=== PATIENT | female | born 1955 | race Caucasian/White ===

== ENCOUNTER → 2017-04-19 | Outpatient (CLI) | payer OTHER, MEDICARE ==
[2016-02-05 11:06] VITALS: BMI 26.6
[~2017-04-19] MED LIST: ACY15T TOP; ADV100/50 INH; ADV230RPT INH; ADV250/50 INH; ALPR-1 PO; AMLO-101 PO; ARM250PT PO; ARMO150T4 PO; ASC500 PO; ASCO-182 PO; ASCO500C9 PO; AZE137NAPT NS; AZEL23SP NS; AZIT-1 PO; AZIT-18 PO; AZIT500T45 PO; BIOT250012 PO; BUPI5VIA IJ; BUPR-126 PO; BUPR1PAT8 TD; CALC-1046; CALC-476 PO; CALC500T6 PO; CARV6.2574 PO; CELE-1 PO; CEP500 PO; CEPH-13 PO; CHOL100062 PO; CHOL500045 PO; CIP500 PO; CIPR-326 PO; CLI150 PO; CLIN300C99 PO; CLOB15CR22 TP; CYAN1TAB68 PO; CYAN25007 SL; DICL150D3 TP; DICY-42 PO; DOCU-416 PO; DOXY-179 PO; DOXY50SY2 PO; DULERAPT IH; EPIN0.3P15 IM; ESOM20CA31 PO; ESOM40CA42 PO; ESZ3PT PO; EZE10 PO; EZET10TA41 PO; FAMO20TA28 PO; FERR325C2 PO; FEX60 PO; FEXO-67 PO; FEXO180T74 PO; FLU150 PO; FLUC100T35 PO; FLUO-202 PO; FLUO40CA76 PO; FLUT16SP20 NS; FLUT1DIS27; FLUT1DIS29 IH; FOLI0.4T56 PO; FOLI0.8T29 PO; FOLI20CA2 PO; FOLIC ACID PO; FUR20 PO; FURO20TA19 PO; GABA-1 PO; HYDR-4228 PO; HYDR2TAB41 PO; HYDR50TA35 PO; IRON18TA2 PO; KET10 PO; LACT1CAP6 PO; LEVA0.6320 IH; LEVA1.2524 IH; LEVA15HF IH; LIN600 PO; LOPE2CAP15 PO; LOPE2CAP88 PO; LORA-1455 PO; MET800 PO; METR-1 PO; METR-119 PO; METR45GE7 TP; METROGEL; MINO100T8 PO; MODA100T32 PO; MON10 PO; MONT10TA PO; MONT10TA22 PO; MULT-1 PO; MULT1TAB64 PO; MUPI15CR2 TP; NABU-95 PO; NAPR220C12 PO; NEPOD OP; NYST100040 PO; ONDA4TAB PO; OXYC-375 PO; OXYC-865 PO; OXYC5TAB38 PO; OXYCODONE IR PO; OXYGEN INH; OXYGENHOME INH; OXYIR PO; PER PO; PIME30CR TOP; PIMT TP; PIR14R INH; PRA20 PO; PRAV20TA65 PO; PRE50 PO; PRED20TA6 PO; PREG100C45 PO; PYRI100T57 PO; QUIN324 PO; QUIN325 PO; RAL60 PO; RAM8 PO; RAME8TAB24 PO; SPRIX; SUMA100T33 PO; TAMO20TA24 PO; TERB250T64 PO; TERB250T74 PO; TIZ4 PO; TIZA4CAP6 PO; TOPI-120 PO; TOPI25TA PO; TRA50 PO; TRI05T TP; UBID100C48 PO; VITA-197 PO; VITA-200 PO; VITAMIN B6 PO; VITAMINS; ZINC25LO PO; ZINC30CA2 PO; ZINC50TA71 PO; [UNRECOGNIZED DRUG - CODE] IJ; [UNRECOGNIZED DRUG - CODE] IJ; [UNRECOGNIZED DRUG - CODE] PO; [UNRECOGNIZED DRUG - CODE] PO; [UNRECOGNIZED DRUG - OTHER]; [UNRECOGNIZED DRUG - REMARK]
--- NOTE | 2017-04-19 15:52 | RADIOLOGY IMAGING REPORT ---
FACILITY: PATIENT NAME: UBALDO PICKARD : [id number] MR: [id number] V: [id number] EXAM DATE: ORDERING PHYSICIAN: JACKLYN BROWN TECHNOLOGIST: Kay Junior PROCEDURE:BILATERAL DIGITAL SCREENING MAMMOGRAM WITH CAD ASSISTED INTERPRETATION & 3D TOMOSYNTHESIS COMPARISON:Prior mammograms 08/12/15, 07/30/14, 04/09/13, 06/27/12 INDICATIONS:SCREENING FINDINGS: A small amount of fibroglandular tissue is seen throughout the breasts. The parenchymal pattern has remained stable allowing for difference in mammographic technique & patient positioning. There is no evidence of malignant appearing mass, malignant appearing calcifications or other secondary sign of malignancy in either breast. DIAGNOSTIC CATEGORY 1--NEGATIVE. RECOMMENDATIONS: ROUTINE MAMMOGRAM AND CLINICAL EVALUATION. IMPRESSION: BIRADS 1: Negative No significant abnormality is seen Dictated by: Danita Suthelrand M.D. on 04/19/2017 at 11:51 Transcribed by: GURPREET on 04/19/2017 at 13:02 Approved by: Danita Sutherland M.D. on 04/19/2017 at 15:51 [facility]
== END ==
LOC: MAMO 00:31
PROVIDERS: ATTEND Family Medicine
DX: Z12.31 Encounter for screening mammogram for malignant neoplasm of breast (principal)
CPT/HCPCS: 77063; 77067

== ENCOUNTER 2017-06-19 18:56 | Emergency (ER) | payer OTHER, MEDICARE ==
[2016-02-05 11:06] VITALS: BMI 26.6
[~2017-06-19 18:56] MED LIST changes: -OXYC-375 PO; +OXYC1TAB78 PO
--- NOTE | 2017-06-19 19:47 | ER Report ---
History and Physical Time Seen By MD: 19:20 Hx. of Stated Complaint: Pt cut right thumb while cutting cabbage. HPI/ROS Patient is a 62-year-old left-hand dominant female who cut the tip of her right thumb with a sharp knife while cutting cabbage. Injury occurred just prior to arrival. She did have significant bleeding at the time. She is controlled bleeding with direct pressure. She notes no other injury. Review of systems: Gen.: No recent fevers chills or illnesses Cardiac: Negative Respiratory: Negative Musculoskeletal: As per history of present illness otherwise negative Allergies: Coded Allergies: Sulfa (Sulfonamide Antibiotics) (Verified Allergy, Severe, weeping blisters, 03/16/16) diazepam (Verified Allergy, Severe, grand mal seizures, 03/16/16) haloperidol (Verified Allergy, Severe, grand mal seizures, 03/16/16) iodine (Verified Allergy, Severe, VOMITING,RASH, 03/16/16) soap (Verified Allergy, Severe, VOMITING,RASH, 03/16/16) amoxicillin (Verified Allergy, Intermediate, rash, diarrhea, 03/16/16) cephalexin (Verified Allergy, Intermediate, UNKNOWN, 03/16/16) yeast infection clavulanic acid (Verified Allergy, Intermediate, rash, diarrhea, 03/16/16) Shellfish (Verified Allergy, Mild, RASH, 03/16/16) adhesive (Verified Allergy, Mild, RASH, 03/16/16) chlorhexidine (Verified Allergy, Mild, RASH, 03/16/16) rash if solution is to concentrated famotidine (Verified Allergy, Mild, DIARRHEA, 07/19/16) lactose (Verified Allergy, Mild, n/v and gas , 03/16/16) latex (Verified Allergy, Mild, RASH, 03/16/16) bacitracin (Verified Allergy, Unknown, 03/16/16) midazolam (Unverified Allergy, Unknown, UNKNOWN, 03/16/16) nickel (Verified Allergy, Unknown, 03/16/16) red dye (Verified Allergy, Unknown, 03/16/16) banana (Verified Adverse Reaction, Unknown, 06/27/16) Migraine peanut (Verified Adverse Reaction, Unknown, 06/27/16) Migraine Uncoded Allergies: iv contrast (Allergy, Severe, RASH, 10/31/06) absorbable sutures (Allergy, Mild, body rejects suture, 06/27/16) Pt allergic to vicryl & polyglycolic (not monocryl) plastic angiocatheters (Allergy, Mild, intense itching at ivsite, 10/31/06) PALLADIUM (Allergy, Unknown, 08/12/13) polyglycolic sutures (Allergy, Unknown, 06/19/17) aure (Allergy, Unknown, 06/19/17) vycril sutures (Allergy, Unknown, 06/19/17) Cavilon (Adverse Reaction, Unknown, RASH, 06/27/16) Barrier spray MSG (Adverse Reaction, Unknown, 06/27/16) Migraine Home Meds Active Scripts Esomeprazole Magnesium (NEXIUM) 40 Mg Capsule.dr, 1 TAB PO BID for 90 Days, # 180 CAP Prov:TOR CANDELARIO JR, MD 12/13/16 Fluconazole (FLUCONAZOLE) 150 Mg Tab, 1 TAB PO ONCE, #1 TAB 0 Refills Take if needed for vaginal yeast infection. Prov:JUDITH BENJAMIN DNP, IMPLEMENTATION CONSULTANT-BC 11/28/16 Cephalexin (KEFLEX) 500 Mg Capsule, 1 TAB PO Q6H, #28 CAP 0 Refills Prov:JUDITH BENJAMIN DNP, IMPLEMENTATION CONSULTANT-BC 11/28/16 Reported Medications Hydroxyzine Hcl (HYDROXYZINE HCL) 50 Mg Tablet, 1-2 TAB PO QHS Y for SLEEP 11/27/16 [BiPAP] No Conflict Check 11/27/16 Vitamin E Acetate (VITAMIN E) 400 Unit Capsule, 400 UNIT PO QHS, CAPSULE 06/27/16 Multivitamin (MULTI VITAMIN DAILY) 1 Each Tablet, 1 EACH PO QDAY, TAB 06/27/16 Lactobacillus Combination No.4 (PROBIOTIC) 1 Each Capsule, 1 EACH PO QDAY, CAPSULE 06/27/16 Tizanidine Hcl (ZANAFLEX) 4 Mg Capsule, 4 MG PO Q6H Y for MUSCLE SPASMS, CAPSULE 06/27/16 Bupropion Hcl (WELLBUTRIN SR) 150 Mg Tablet.er, 150 MG PO BID, TAB 06/27/16 Sumatriptan Succinate (SUMATRIPTAN SUCCINATE) 100 Mg Tablet, 100 MG PO ONCE Y for MIGRAINE 06/27/16 Folic Acid (FOLIC ACID) 0.8 Mg Tablet, 0.8 MG PO QHS 06/27/16 Ascorbic Acid (VITAMIN C) 500 Mg Capsule.er, 500 MG PO BID 02/04/16 Pyridoxine Hcl (VITAMIN B-6) 100 Mg Tablet, 100 MG PO QHS 02/04/16 Calcium Carbonate (CALCIUM) 500 Mg Tablet, 600 MG PO QDAY 02/04/16 Biotin (BIOTIN) 2,500 Mcg Capsule, 5000 MCG PO QHS, CAPSULE 02/04/16 Ezetimibe (ZETIA) 10 Mg Tablet, 10 MG PO QHS, TAB 02/04/16 Levalbuterol Hcl (XOPENEX) 0.63 Mg/3 Ml Vial.neb, 0.63 MG IH Q6H Y for WHEEZING , BOTTLE 02/04/16 Levalbuterol Tartrate (XOPENEX HFA) 15 Gm Hfa.aer.ad, 1-2 PUFF IH QID Y for DYSPNEA 02/04/16 Tamoxifen Citrate (TAMOXIFEN CITRATE) 20 Mg Tablet, 20 MG PO QDAY 02/04/16 Topiramate (TOPAMAX) 50 Mg Tablet, 50 MG PO BID 02/04/16 Montelukast Sodium (SINGULAIR) 10 Mg Tablet, 1 TAB PO QDAY, TAB 02/04/16 Fluoxetine Hcl (PROZAC) 20 Mg Capsule, 60 MG PO QDAY, CAPSULE 02/04/16 Pravastatin Sodium (PRAVACHOL) 20 Mg Tablet, 20 MG PO QHS, TAB 02/04/16 Oxygen (OXYGEN) Inha, 1 L INH, L 02/04/16 Amlodipine Besylate (NORVASC) 5 Mg Tablet, 1 TAB PO QDAY, TAB 02/04/16 Esomeprazole Magnesium (NEXIUM) 20 Mg Capsule.dr, 1 CAP PO QHS, CAP 02/04/16 Esomeprazole Magnesium (NEXIUM) 40 Mg Capsule.dr, 1 CAP PO QAM, CAP 02/04/16 Azelastine/Fluticasone (DYMISTA NASAL SPRAY) 23 Gm [place].pump, 1 SPR NS BID Y for CONGESTION 02/04/16 Carvedilol (COREG) 6.25 Mg Tablet, 6.25 MG PO BID, #10 TAB 02/04/16 Fexofenadine Hcl (ARVIND ALLERGY) 180 Mg Tablet, 180 MG PO QHS 02/04/16 Fluticasone/Salmeterol (ADVAIR HFA 230-21 MCG INHALER) 1 Inh Inh, 2 INH INH BID , INH 02/04/16 Discontinued Reported Medications Cholecalciferol (Vitamin D3) (VITAMIN D) 5,000 Unit Tablet, 5000 UNIT PO QHS 02/04/16 Past Medical/Surgical History Extensive medical history was reviewed as is documented on the chart Reviewed Nurses Notes: Yes Hx Smoking: Yes (SMOKED 1 TO 2 PPD AGE 13 TO 44.) Smoking Status: Former Smoker Exposure to Second Hand Smoke?: No Hx Substance Use Disorder: Yes Hx Alcohol Use: No Constitutional Vital Sign - Last 24 Hours 06/19/17 06/19/17 06/19/17 06/19/17 19:14 19:15 19:26 19:30 Temp 98.5 Pulse 75 65 Resp 16 B/P (MAP) 142/77 (98) 142/77 149/70 (96) Pulse Ox 91 92 O2 Delivery Room Air 06/19/17 06/19/17 06/19/17 19:41 19:56 20:00 Pulse 63 64 B/P (MAP) 138/74 (95) Pulse Ox 93 91 Physical Exam General appearance: alert no distress Skin: Warm pink and dry Neurologic: Patient alert oriented appropriate without focal findings Right thumb: There is a partial evulsion laceration of the distal thumb ulnar aspect at the corner of the nail bed and fingertip. This is partial thickness. There is no involvement of the nailbed itself. No involvement of the nail. She has full range of motion of the thumb. Neurovascular is intact. No other injuries on the hand are noted. There is currently good hemostasis. Normal capillary refill. DIFFERENTIAL DIAGNOSIS: After history and physical exam differential diagnosis was considered for hand/finger injury including contusion, abrasion, laceration , nailbed involvement, and deep structure injuries. Medical Decision Making ED Course/Re-evaluation ED Course In the department, after evaluation of the thumb I discussed options for repair. These include conservative treatment with cleaning, Steri-Stripped, and compression bandaging versus consideration of suturing of the flap. Patient would prefer to have the suturing done. Procedure Laceration repair: Right thumb A digital block was placed using 2% lidocaine plain at the base of the thumb on the ulnar aspect. After appropriate anesthesia obtained wound was cleaned with sterile water. It was explored. No deep structures are involved. Wound was sutured closed using 5-0 Ethilon 2 simple interrupted sutures. Patient tolerated procedure well. Post procedure, wound was dressed with a compression dressing. Decision to Disposition Date: June 19, 2017 Decision to Disposition Time: 20:10 Depart Departure Latest Vital Signs Vital Signs Date Time Temp Pulse Resp B/P (MAP) Pulse Ox O2 Delivery O2 Flow Rate FiO2 06/19/17 20:00 138/74 (95) 06/19/17 19:56 64 91 06/19/17 19:15 98.5 16 Room Air Impression: Primary Impression: Laceration of thumb Condition: Improved Disposition: HOME OR SELF-CARE Referrals: JACKLYN BROWN MD (PCP) Patient Instructions: Finger Laceration (ED) Additional Instructions: return for suture removal in 10-14 days Problem Qualifiers Primary Impression: Laceration of thumb Encounter type: initial encounter Damage to nail status: without damage Foreign body presence: with foreign body Laterality: right Qualified Codes: S61.021A - Laceration with foreign body of right thumb without damage to nail , initial encounter SAUL KENNEDY MD June 19, 2017 19:47
[2017-06-19 20:00] VITALS: BP 138/74
== END 2017-06-19 20:10 | disposition home or self-care (01) ==
LOC: ER 19:51
DX: S61.021A Laceration with foreign body of right thumb without damage to nail, initial encounter (principal)
CPT/HCPCS: 99284

== ENCOUNTER → 2017-08-24 | Outpatient (CLI) | payer OTHER, MEDICARE ==
[2016-02-05 11:06] VITALS: BMI 26.6
== END ==
LOC: LAB 11:21
PROVIDERS: ATTEND Urology
DX: N39.0 Urinary tract infection, site not specified (principal); R82.79 Other abnormal findings on microbiological examination of urine
CPT/HCPCS: 81001; 87088

== ENCOUNTER → 2017-09-14 | Outpatient (REF) | payer OTHER, MEDICARE ==
[2016-02-05 11:06] VITALS: BMI 26.6
== END ==
LOC: ZZSENDIN 13:57
PROVIDERS: ATTEND Family Medicine
DX: R31.9 Hematuria, unspecified (principal)
CPT/HCPCS: 81001

== ENCOUNTER 2017-09-28 12:22 | Emergency (ER) | payer OTHER, MEDICARE ==
[2016-02-05 11:06] VITALS: Wt 87.5 kg
--- NOTE | 2017-09-28 12:32 | ER Report ---
History and Physical Time Seen By MD: 12:32 Hx. of Stated Complaint: PATIENT REPORTS THAT SHE HAS A OPEN SPOT ON HER LOWER BACK THAT SHE BELIEVES MIGHT BE A SUTURE THAT WAS PLACED IN 2017. HPI/ROS CHIEF COMPLAINT: Wound on back HISTORY OF PRESENT ILLNESS: 62-year-old female patient presents to emergency room with complaint of a wound on her back. Patient states that she noticed this yesterday. She states that she had surgery back in 2008 in that area. She states that they did use some subcuticular sutures. She states she does have a history of rejecting those. She believes that she has an area on her back which is a rejection of one of those sutures. She states that she noticed that she was having some itching yesterday. She states she had her take some pictures. She states that it did show an opening. They did cover that with a bandage. She states that today when she was in the shower that she bent over to clean her toes and water got into it causing significant amounts of a burning sensation. She denies any trauma to the area, she denies any recent injury to the skin. Patient states she has not taken any medication for this. Allergies: Coded Allergies: Sulfa (Sulfonamide Antibiotics) (Verified Allergy, Severe, weeping blisters, 03/16/16) diazepam (Verified Allergy, Severe, grand mal seizures, 03/16/16) haloperidol (Verified Allergy, Severe, grand mal seizures, 03/16/16) iodine (Verified Allergy, Severe, VOMITING,RASH, 03/16/16) soap (Verified Allergy, Severe, VOMITING,RASH, 03/16/16) amoxicillin (Verified Allergy, Intermediate, rash, diarrhea, 03/16/16) cephalexin (Verified Allergy, Intermediate, UNKNOWN, 03/16/16) yeast infection clavulanic acid (Verified Allergy, Intermediate, rash, diarrhea, 03/16/16) Shellfish (Verified Allergy, Mild, RASH, 03/16/16) adhesive (Verified Allergy, Mild, RASH, 03/16/16) chlorhexidine (Verified Allergy, Mild, RASH, 03/16/16) rash if solution is to concentrated famotidine (Verified Allergy, Mild, DIARRHEA, 07/19/16) lactose (Verified Allergy, Mild, n/v and gas , 03/16/16) latex (Verified Allergy, Mild, RASH, 03/16/16) bacitracin (Verified Allergy, Unknown, 03/16/16) midazolam (Unverified Allergy, Unknown, UNKNOWN, 03/16/16) nickel (Verified Allergy, Unknown, 03/16/16) red dye (Verified Allergy, Unknown, 03/16/16) banana (Verified Adverse Reaction, Unknown, 06/27/16) Migraine peanut (Verified Adverse Reaction, Unknown, 06/27/16) Migraine Uncoded Allergies: iv contrast (Allergy, Severe, RASH, 10/31/06) absorbable sutures (Allergy, Mild, body rejects suture, 06/27/16) Pt allergic to vicryl & polyglycolic (not monocryl) plastic angiocatheters (Allergy, Mild, intense itching at ivsite, 10/31/06) PALLADIUM (Allergy, Unknown, 08/12/13) polyglycolic sutures (Allergy, Unknown, 06/19/17) aure (Allergy, Unknown, 06/19/17) vycril sutures (Allergy, Unknown, 06/19/17) Cavilon (Adverse Reaction, Unknown, RASH, 06/27/16) Barrier spray MSG (Adverse Reaction, Unknown, 06/27/16) Migraine Home Meds Active Scripts Doxycycline Hyclate (DOXYCYCLINE HYCLATE) 100 Mg Tablet, 100 MG PO BID, #19 TAB Prov:WIL OWENS 09/28/17 Esomeprazole Magnesium (NEXIUM) 40 Mg Capsule.dr, 1 TAB PO BID for 90 Days, # 180 CAP Prov:TOR CANDELARIO JR, MD 12/13/16 Fluconazole (FLUCONAZOLE) 150 Mg Tab, 1 TAB PO ONCE, #1 TAB 0 Refills Take if needed for vaginal yeast infection. Prov:JUDITH BENJAMIN DNP, FNP-BC 11/28/16 Cephalexin (KEFLEX) 500 Mg Capsule, 1 TAB PO Q6H, #28 CAP 0 Refills Prov:JUDITH BENJAMIN DNP, FNP-JOHN 11/28/16 Reported Medications Hydroxyzine Hcl (HYDROXYZINE HCL) 50 Mg Tablet, 1-2 TAB PO QHS Y for SLEEP 11/27/16 [BiPAP] No Conflict Check 11/27/16 Vitamin E Acetate (VITAMIN E) 400 Unit Capsule, 400 UNIT PO QHS, CAPSULE 06/27/16 Multivitamin (MULTI VITAMIN DAILY) 1 Each Tablet, 1 EACH PO QDAY, TAB 06/27/16 Lactobacillus Combination No.4 (PROBIOTIC) 1 Each Capsule, 1 EACH PO QDAY, CAPSULE 06/27/16 Tizanidine Hcl (ZANAFLEX) 4 Mg Capsule, 4 MG PO Q6H Y for MUSCLE SPASMS, CAPSULE 06/27/16 Bupropion Hcl (WELLBUTRIN SR) 150 Mg Tablet.er, 150 MG PO BID, TAB 06/27/16 Sumatriptan Succinate (SUMATRIPTAN SUCCINATE) 100 Mg Tablet, 100 MG PO ONCE Y for MIGRAINE 06/27/16 Folic Acid (FOLIC ACID) 0.8 Mg Tablet, 0.8 MG PO QHS 06/27/16 Ascorbic Acid (VITAMIN C) 500 Mg Capsule.er, 500 MG PO BID 02/04/16 Pyridoxine Hcl (VITAMIN B-6) 100 Mg Tablet, 100 MG PO QHS 02/04/16 Calcium Carbonate (CALCIUM) 500 Mg Tablet, 600 MG PO QDAY 02/04/16 Biotin (BIOTIN) 2,500 Mcg Capsule, 5000 MCG PO QHS, CAPSULE 02/04/16 Ezetimibe (ZETIA) 10 Mg Tablet, 10 MG PO QHS, TAB 02/04/16 Levalbuterol Hcl (XOPENEX) 0.63 Mg/3 Ml Vial.neb, 0.63 MG IH Q6H Y for WHEEZING , BOTTLE 02/04/16 Levalbuterol Tartrate (XOPENEX HFA) 15 Gm Hfa.aer.ad, 1-2 PUFF IH QID Y for DYSPNEA 02/04/16 Tamoxifen Citrate (TAMOXIFEN CITRATE) 20 Mg Tablet, 20 MG PO QDAY 02/04/16 Topiramate (TOPAMAX) 50 Mg Tablet, 50 MG PO BID 02/04/16 Montelukast Sodium (SINGULAIR) 10 Mg Tablet, 1 TAB PO QDAY, TAB 02/04/16 Fluoxetine Hcl (PROZAC) 20 Mg Capsule, 60 MG PO QDAY, CAPSULE 02/04/16 Pravastatin Sodium (PRAVACHOL) 20 Mg Tablet, 20 MG PO QHS, TAB 02/04/16 Oxygen (OXYGEN) Inha, 1 L INH, L 02/04/16 Amlodipine Besylate (NORVASC) 5 Mg Tablet, 1 TAB PO QDAY, TAB 02/04/16 Esomeprazole Magnesium (NEXIUM) 20 Mg Capsule.dr, 1 CAP PO QHS, CAP 02/04/16 Esomeprazole Magnesium (NEXIUM) 40 Mg Capsule.dr, 1 CAP PO QAM, CAP 02/04/16 Azelastine/Fluticasone (DYMISTA NASAL SPRAY) 23 Gm [place].pump, 1 SPR NS BID Y for CONGESTION 02/04/16 Carvedilol (COREG) 6.25 Mg Tablet, 6.25 MG PO BID, #10 TAB 02/04/16 Fexofenadine Hcl (ARVIND ALLERGY) 180 Mg Tablet, 180 MG PO QHS 02/04/16 Fluticasone/Salmeterol (ADVAIR HFA 230-21 MCG INHALER) 1 Inh Inh, 2 INH INH BID , INH 02/04/16 Past Medical/Surgical History Patient has a past medical history of seizure, migraines, hypertension, hyperlipidemia, asthma, pneumonia, reflux, kidney stones, arthritis, spinal fracture, back pain, scleroderma, cellulitis, substance abuse, depression, anxiety, squamous cell carcinoma. Patient has a surgical history of an exploratory laparotomy, appendectomy, cystoscopy, multiple back surgeries, foot surgery, wrist surgery, ankle surgery , rotator cuff surgery, tonsillectomy, cataract surgery, squamous cell removed, spinal cord stimulator placed, excision of a pellet seen mass which was benign. Reviewed Nurses Notes: Yes Hx Smoking: Yes (SMOKED 1 TO 2 PPD AGE 13 TO 44.) Smoking Status: Former Smoker Exposure to Second Hand Smoke?: No Hx Substance Use Disorder: Yes Hx Alcohol Use: No Constitutional Vital Sign - Last 24 Hours 09/28/17 09/28/17 09/28/17 09/28/17 12:22 12:24 12:25 12:30 Temp 98.6 Pulse ??? 61 Resp 20 B/P (MAP) 144/86 144/86 (105) 124/67 (86) Pulse Ox 93 O2 Delivery Nasal Cannula 09/28/17 09/28/17 09/28/17 12:52 13:00 13:11 Pulse 57 B/P (MAP) 127/77 (94) 150/84 (106) Pulse Ox 93 Physical Exam General Appearance: The patient is alert, has no immediate need for airway protection and no current signs of toxicity. Respiratory: Chest is non tender, lungs are clear to auscultation. Cardiac: regular rate and rhythm Skin: No rashes or lesions. Patient does have an area that is opened up at the proximal end of a scar the middle of her low back. I was able to express out some purulent drainage. Cultures were obtained and sent. DIFFERENTIAL DIAGNOSIS: After history and physical exam differential diagnosis was considered for cellulitis, abscess, retained foreign body, rejected suture. Medical Decision Making ED Course/Re-evaluation ED Course Patient was admitted to an exam room, history of physical or obtained. Differential diagnoses were considered. On examination patient has a small wound which was opened up at the proximal end of a scar on her low back. There is some mild erythema around that. I was able to palpate and express out some purulent drainage. Aerobic and anaerobic culture was obtained and sent to lab. When I was unable to express out any further purulent drainage the area was dressed using a 2 x 2 and tape. Patient tolerated procedure well. We will go ahead and treat her with doxycycline to treat any infection. She is to follow- up with her primary care provider one week. She is return to emergency room if condition worsens. Patient requested that the cultures be intubated for about 6 days, as she has had a previous MRSA pneumonia which took 6 days for the cultures to grow. I did discuss the lab and they said that they would. Patient verbalized understanding and agreement with plan. Decision to Disposition Date: Sep 28, 2017 Decision to Disposition Time: 13:07 Depart Departure Latest Vital Signs Vital Signs Date Time Temp Pulse Resp B/P (MAP) Pulse Ox O2 Delivery O2 Flow Rate FiO2 09/28/17 13:11 150/84 (106) 09/28/17 12:52 57 93 09/28/17 12:24 98.6 20 Nasal Cannula Impression: Primary Impression: Wound, open, back Condition: Improved Disposition: HOME OR SELF-CARE Referrals: JACKLYN BROWN MD (PCP) New Scripts Doxycycline Hyclate (DOXYCYCLINE HYCLATE) 100 Mg Tablet 100 MG PO BID, #19 TAB Prov: GRACIELAWIL JEFF 09/28/17 Patient Instructions: Wound Dehiscence (ED) Additional Instructions: Change the dressing as needed. Limit activity by pain. We will call with the culture results if we need to change the antibiotics. I did call and request a longer incubation with your cultures. Follow up with Dr. Brown early next week. Problem Qualifiers Primary Impression: Wound, open, back Encounter type: initial encounter Laterality: unspecified laterality Qualified Codes: S21.209A - Unspecified open wound of unspecified back wall of thorax without penetration into thoracic cavity, initial encounter WIL OWENS Sep 28, 2017 12:32
[2017-09-28] MEDS ORDERED: DOXYCYCLINE HYCL 100 MG TAB PO ONE (13:00)
[2017-09-28] MEDS ORDERED: DOXY-179 PO (13:06)
[2017-09-28 13:11] VITALS: BP 150/84
== END 2017-09-28 13:16 | disposition home or self-care (01) ==
LOC: ER 12:28
DX: S21.209A Unspecified open wound of unspecified back wall of thorax without penetration into thoracic cavity, initial encounter (principal); G40.909 Epilepsy, unspecified, not intractable, without status epilepticus; I10 Essential (primary) hypertension; E78.5 Hyperlipidemia, unspecified; J45.909 Unspecified asthma, uncomplicated; K21.9 Gastro-esophageal reflux disease without esophagitis; M19.90 Unspecified osteoarthritis, unspecified site; F32.9 Major depressive disorder, single episode, unspecified; F41.9 Anxiety disorder, unspecified; X58.XXXA Exposure to other specified factors, initial encounter; Z87.891 Personal history of nicotine dependence; Z87.442 Personal history of urinary calculi; Z99.81 Dependence on supplemental oxygen; Z79.899 Other long term (current) drug therapy
CPT/HCPCS: 87070; 87073; 87077; 87186; 87205; 99283

== ENCOUNTER → 2017-11-05 | Outpatient (CLI) | payer OTHER, MEDICARE ==
[2016-02-05 11:06] VITALS: BMI 26.6
== END ==
LOC: US 04:15
PROVIDERS: ATTEND Internal Medicine
DX: I27.20 Pulmonary hypertension, unspecified (principal)
CPT/HCPCS: 93306

== ENCOUNTER 2018-02-26 19:14 | Emergency (ER) | payer MEDICARE, OTHER ==
[2016-02-05 11:06] VITALS: BMI 26.6
[~2018-02-26 19:14] MED LIST changes: -ZINC50TA71 PO; +ZINC50TA9 PO
[2018-02-26 19:21] VITALS: BP 136/71
--- NOTE | 2018-02-26 19:31 | ER Report ---
History and Physical Time Seen By MD: 19:31 Hx. of Stated Complaint: patient fell/tripped over her oxygen cord around 1800; patient states she fell onto her right knee but her right 4th toe "really hurts"; patient already has an unstready gait HPI/ROS CHIEF COMPLAINT: Fall with right foot pain HISTORY OF PRESENT ILLNESS: 62-year-old female patient presents to emergency room with complaint of fall. Patient states that she was walking her home and tripped on her oxygen tubing. She states she fell onto her right knee. She was partially caught by her and limited her injury. However she states she has significant amounts of pain to the lateral side of the right foot. Patient states she is not taking any medicine for this. Patient denies any numbness or tingling. She states she does have significant amounts of pain throughout. REVIEW OF SYSTEMS: Respiratory: No cough, no dyspnea. Cardiovascular: No chest pain, no palpitations. Gastrointestinal: No vomiting, no abdominal pain. Musculoskeletal: As noted above Allergies: Coded Allergies: Sulfa (Sulfonamide Antibiotics) (Verified Allergy, Severe, weeping blisters, 03/16/16) diazepam (Verified Allergy, Severe, grand mal seizures, 03/16/16) haloperidol (Verified Allergy, Severe, grand mal seizures, 03/16/16) iodine (Verified Allergy, Severe, VOMITING,RASH, 03/16/16) soap (Verified Allergy, Severe, VOMITING,RASH, 03/16/16) amoxicillin (Verified Allergy, Intermediate, rash, diarrhea, 03/16/16) cephalexin (Verified Allergy, Intermediate, UNKNOWN, 03/16/16) yeast infection clavulanic acid (Verified Allergy, Intermediate, rash, diarrhea, 03/16/16) Shellfish (Verified Allergy, Mild, RASH, 03/16/16) adhesive (Verified Allergy, Mild, RASH, 03/16/16) chlorhexidine (Verified Allergy, Mild, RASH, 03/16/16) rash if solution is to concentrated famotidine (Verified Allergy, Mild, DIARRHEA, 07/19/16) lactose (Verified Allergy, Mild, n/v and gas , 03/16/16) latex (Verified Allergy, Mild, RASH, 03/16/16) bacitracin (Verified Allergy, Unknown, 03/16/16) midazolam (Unverified Allergy, Unknown, UNKNOWN, 03/16/16) nickel (Verified Allergy, Unknown, 03/16/16) red dye (Verified Allergy, Unknown, 03/16/16) banana (Verified Adverse Reaction, Unknown, 06/27/16) Migraine peanut (Verified Adverse Reaction, Unknown, 06/27/16) Migraine Uncoded Allergies: iv contrast (Allergy, Severe, RASH, 10/31/06) absorbable sutures (Allergy, Mild, body rejects suture, 06/27/16) Pt allergic to vicryl & polyglycolic (not monocryl) plastic angiocatheters (Allergy, Mild, intense itching at ivsite, 10/31/06) PALLADIUM (Allergy, Unknown, 08/12/13) polyglycolic sutures (Allergy, Unknown, 06/19/17) aure (Allergy, Unknown, 06/19/17) vycril sutures (Allergy, Unknown, 06/19/17) Cavilon (Adverse Reaction, Unknown, RASH, 06/27/16) Barrier spray MSG (Adverse Reaction, Unknown, 06/27/16) Migraine Home Meds Active Scripts Tramadol Hcl (TRAMADOL HCL) 50 Mg Tablet, 50 MG PO Q4-6H PRN for PAIN, #12 TAB Prov:WIL OWENS [facility] 02/26/18 Doxycycline Hyclate (DOXYCYCLINE HYCLATE) 100 Mg Tablet, 100 MG PO BID, #19 TAB Prov:WIL OWENS [facility] 09/28/17 Fluconazole (FLUCONAZOLE) 150 Mg Tab, 1 TAB PO ONCE, #1 TAB 0 Refills Take if needed for vaginal yeast infection. Prov:JUDITH BENJAMIN DNP, SALVAGE ENGINEER-BC 11/28/16 Reported Medications [BiPAP] No Conflict Check 11/27/16 Multivitamin (MULTI VITAMIN DAILY) 1 Each Tablet, 1 EACH PO QDAY, TAB 06/27/16 Lactobacillus Combination No.4 (PROBIOTIC) 1 Each Capsule, 1 EACH PO QDAY, CAPSULE 06/27/16 Tizanidine Hcl (ZANAFLEX) 4 Mg Capsule, 4 MG PO Q6H PRN for MUSCLE SPASMS, CAP [place] 06/27/16 Sumatriptan Succinate (SUMATRIPTAN SUCCINATE) 100 Mg Tablet, 100 MG PO ONCE PRN for MIGRAINE 06/27/16 Folic Acid (FOLIC ACID) 0.8 Mg Tablet, 0.8 MG PO QHS 06/27/16 Ascorbic Acid (VITAMIN C) 500 Mg Capsule.er, 500 MG PO BID 02/04/16 Pyridoxine Hcl (VITAMIN B-6) 100 Mg Tablet, 100 MG PO QHS 02/04/16 Calcium Carbonate (CALCIUM) 500 Mg Tablet, 600 MG PO QDAY 02/04/16 Biotin (BIOTIN) 2,500 Mcg Capsule, 5000 MCG PO QHS, CAPSULE 02/04/16 Ezetimibe (ZETIA) 10 Mg Tablet, 10 MG PO QHS, TAB 02/04/16 Levalbuterol Hcl (XOPENEX) 0.63 Mg/3 Ml Vial.neb, 0.63 MG IH Q6H PRN for WHEEZING, BOTTLE 02/04/16 Levalbuterol Tartrate (XOPENEX HFA) 15 Gm Hfa.aer.ad, 1-2 PUFF IH QID PRN for DYSPNEA 02/04/16 Tamoxifen Citrate (TAMOXIFEN CITRATE) 20 Mg Tablet, 20 MG PO QDAY 02/04/16 Topiramate (TOPAMAX) 50 Mg Tablet, 50 MG PO BID 02/04/16 Montelukast Sodium (SINGULAIR) 10 Mg Tablet, 1 TAB PO QDAY, TAB 02/04/16 Fluoxetine Hcl (PROZAC) 20 Mg Capsule, 60 MG PO QDAY, CAPSULE 02/04/16 Pravastatin Sodium (PRAVACHOL) 20 Mg Tablet, 20 MG PO QHS, TAB 02/04/16 Oxygen (OXYGEN) Inha, 1 L INH, L 02/04/16 Amlodipine Besylate (NORVASC) 5 Mg Tablet, 1 TAB PO QDAY, TAB 02/04/16 Esomeprazole Magnesium (NEXIUM) 40 Mg Capsule.dr, 1 CAP PO QAM, CAP 02/04/16 Azelastine/Fluticasone (DYMISTA NASAL SPRAY) 23 Gm [place].pump, 1 SPR NS BID PRN for CONGESTION 02/04/16 Carvedilol (COREG) 6.25 Mg Tablet, 6.25 MG PO BID, #10 TAB 02/04/16 Fexofenadine Hcl (ARVIND ALLERGY) 180 Mg Tablet, 180 MG PO QHS 02/04/16 Fluticasone/Salmeterol (ADVAIR HFA 230-21 MCG INHALER) 1 Inh Inh, 2 INH INH BID, INH 02/04/16 Discontinued Reported Medications Hydroxyzine Hcl (HYDROXYZINE HCL) 50 Mg Tablet, 1-2 TAB PO QHS PRN for SLEEP 11/27/16 Vitamin E Acetate (VITAMIN E) 400 Unit Capsule, 400 UNIT PO QHS, CAPSULE 06/27/16 Bupropion Hcl (WELLBUTRIN SR) 150 Mg Tablet.er, 150 MG PO BID, TAB 06/27/16 Esomeprazole Magnesium (NEXIUM) 20 Mg Capsule.dr, 1 CAP PO QHS, CAP 02/04/16 Discontinued Scripts Esomeprazole Magnesium (NEXIUM) 40 Mg Capsule.dr, 1 TAB PO BID for 90 Days, #180 CAP Prov:TRU CANDELARIO JR, MD 12/13/16 Cephalexin (KEFLEX) 500 Mg Capsule, 1 TAB PO Q6H, #28 CAP 0 Refills Prov:JUDITH BENJAMIN DNP, SALVAGE ENGINEER-BC 11/28/16 Past Medical/Surgical History Patient has a past medical history of seizures, migraines, hypertension, hyperlipidemia, oxygen, asthma, pneumonia, reflux, kidney stones, arthritis, fractures, back pain, scleroderma, cellulitis, skin cancer, depression, anxiety. Patient has surgical history of exploratory laparotomy, breast biopsy, multiple orthopedic surgeries, cataract surgery, excision of a palate team mass, tonsillectomy, spinal stimulator placed, right foot surgery, left ankle, left foot, cystoscopy. Reviewed Nurses Notes: Yes Hx Smoking: Yes (SMOKED 1 TO 2 PPD AGE 15 TO 44.) Smoking Status: Former Smoker Exposure to Second Hand Smoke?: No Hx Substance Use Disorder: Yes Hx Alcohol Use: No Constitutional Vital Sign - Last 24 Hours 02/26/18 19:21 Temp 98.3 Pulse 62 Resp 17 B/P (MAP) 136/71 Pulse Ox 95 O2 Delivery Room Air Physical Exam General Appearance: The patient is alert, has no immediate need for airway protection and no current signs of toxicity. Respiratory: Chest is non tender, lungs are clear to auscultation. Cardiac: regular rate and rhythm Gastrointestinal: Abdomen is soft and non tender, no masses, bowel sounds normal. Musculoskeletal: Neck: Neck is supple and non tender. Extremities have full range of motion and are non tender. Patient has significant tenderness to the lateral side of the right foot. Skin: No rashes or lesions. DIFFERENTIAL DIAGNOSIS: After history and physical exam differential diagnosis was considered for contusion, fracture, sprain. Medical Decision Making EKG/Imaging Imaging EXAMINATION: Right foot series, 3 views 02/26/2018 7:37 PM HISTORY: fall with pain COMPARISON: Separate right knee series today. Right foot 10/03/2011 FINDINGS: Bones are osteopenic. There has been surgery with fusion across the first MTP for the bunion deformity with prominent hallux valgus angulation shown on the previous. The patient has also had prior amputation of the second toe. Screws from ORIF in the distal third metatarsal. Fractures in the distal shafts of the fourth and fifth metatarsals without significant displacement. No other acute bony injury. There is chronic erosion or prior resection of the distal end of the fifth proximal phalanx. There is a screw in the calcaneus from prior surgery as well. Calcification along the posterior plantar fascia again shown. IMPRESSION: Acute fractures of the distal right fourth and fifth metatarsals. Additional chronic findings, as above. Report Dictated By: Derrick Martínez MD at 02/26/2018 8:28 PM Report E-Signed By: Derrick Martínez MD at 02/26/2018 8:32 PM EXAMINATION: Right knee 4 views HISTORY: Fall with pain. COMPARISON: 09/23/2013. FINDINGS: Bones of the right knee demonstrate normal alignment. No evidence of acute fracture or dislocation. There is mild joint space narrowing in the medial compartment with slight marginal osteophyte formation. The lateral joint space is preserved. Soft tissues are radiographically unremarkable. IMPRESSION: 1. No acute osseous findings at the right knee. 2. Mild chronic degenerative changes along the medial compartment. Report Dictated By: Tru Candelario MD at 02/26/2018 8:29 PM Report E-Signed By: Tru Candelario MD at 02/26/2018 8:35 PM ED Course/Re-evaluation ED Course Patient was admitted to an exam room, history and physical were obtained. Differential diagnoses were considered. On examination lungs are clear, heart is regular, abdomen is soft and nontender. Patient does have tenderness to the right foot. Due to the patient falling on her right foot as well as her right knee and x-rays done of both the foot and the knee. The results show a fracture of the fourth and fifth metatarsal of the right foot. The right knee was negative for fracture. I discussed the findings with the patient. We will go ahead and discharge patient home with a walking boot. Patient does have a scooter, that she can rest her right knee on to avoid weightbearing, that she will use at home. She is to follow-up with [facility]. She is to call tomorrow to make an appointment. 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 She states that hydrocodone gives her headache. We will go ahead and try tramadol for her pain. Patient was given a dose here and will be discharged with 2 for tonight and a prescription was sent into her pharmacy. Patient and her verbalized understanding and agreement with plan. Decision to Disposition Date: Feb 26, 2018 Decision to Disposition Time: 20:16 Depart Departure Latest Vital Signs Vital Signs Date Time Temp Pulse Resp B/P (MAP) Pulse Ox O2 Delivery O2 Flow Rate FiO2 02/26/18 19:21 98.3 62 17 136/71 95 Room Air Impression: Primary Impression: Fractured metatarsal bone Condition: Improved Disposition: HOME OR SELF-CARE Referrals: JACKLYN BROWN MD (PCP) New Scripts Tramadol Hcl (TRAMADOL HCL) 50 Mg Tablet 50 MG PO Q4-6H PRN for PAIN, #12 TAB Prov: WIL OWENS 02/26/18 Patient Instructions: Foot Fracture in Adults (ED) Additional Instructions: Wear the walking boot when you are up moving around. Don't bear weight on the right foot. Follow up with [facility], call tomorrow to make an appointment. Return to the ER if condition worsens. You may wear the walking boot when you are active and may take it off to shower or to sleep. Problem Qualifiers Primary Impression: Fractured metatarsal bone Encounter type: initial encounter Metatarsal bone: unspecified metatarsal Fracture type: closed Fracture alignment: nondisplaced Laterality: right Qualified Codes: S92.301A - Fracture of unspecified metatarsal bone(s), right foot, initial encounter for closed fracture WIL OWENS Feb 26, 2018 19:31
[2018-02-26] MEDS ORDERED: TRAM-420 PO (20:14)
[2018-02-26] MEDS ORDERED: traMADol 50 MG TAB TH 2 TAB/BOTTLE PO ONE (20:15)
[2018-02-26] MEDS ORDERED: traMADol 50 MG TAB PO ONE (20:15)
--- NOTE | 2018-02-26 20:37 | RADIOLOGY IMAGING REPORT ---
FACILITY: [facility] [place] PATIENT NAME: Kesha Cramer : 1955 MR: [id number] V: [id number] EXAM DATE: ORDERING PHYSICIAN: WIL OWENS TECHNOLOGIST: Location: [facility] Patient: Kesha Cramer : 1955 Visit/Account:[id number] Date of Sevice: 02/26/2018 EXAMINATION: Right foot series, 3 views 02/26/2018 7:37 PM HISTORY: fall with pain COMPARISON: Separate right knee series today. Right foot 10/03/2011 FINDINGS: Bones are osteopenic. There has been surgery with fusion across the first MTP for the buni on deformity with prominent hallux valgus angulation shown on the previous. The patient has also had prior amputation of the second toe. Screws from ORIF in the distal third metatarsal. Fractures in the distal shafts of the fourth and fifth metatarsals without significant displacement. No other acute b carlos alberto injury. There is chronic erosion or prior resection of the distal end of the fifth proximal phala nx. There is a screw in the calcaneus from prior surgery as well. Calcification along the posterior p lantar fascia again shown. IMPRESSION: Acute fractures of the distal right fourth and fifth metatarsals. Additional chronic findings, as abo ve. Report Dictated By: Derrick Martínez MD at 02/26/2018 8:28 PM Report E-Signed By: Derrick Martínez MD at 02/26/2018 8:32 PM WSN:[id number]
--- NOTE | 2018-02-26 20:40 | RADIOLOGY IMAGING REPORT ---
FACILITY: [facility] PATIENT NAME: Kesha Cramer : 1955 MR: [id number] V: [id number] EXAM DATE: ORDERING PHYSICIAN: WIL OWENS TECHNOLOGIST: Location: [facility] [place] Patient: Kesha Cramer : 1955 Visit/Account:[id number] Date of Sevice: 02/26/2018 EXAMINATION: Right knee 4 views HISTORY: Fall with pain. COMPARISON: 09/23/2013. FINDINGS: Bones of the right knee demonstrate normal alignment. No evidence of acute fracture or dislocation. There is mild joint space narrowing in the medial compartment with slight marginal osteophyte formati on. The lateral joint space is preserved. Soft tissues are radiographically unremarkable. IMPRESSION: 1. No acute osseous findings at the right knee. 2. Mild chronic degenerative changes along the medial compartment. Report Dictated By: Tru Gavin MD at 02/26/2018 8:29 PM Report E-Signed By: Tru Gavin MD at 02/26/2018 8:35 PM WSN:[id number]
== END 2018-02-26 20:42 | disposition home or self-care (01) ==
LOC: ER 19:38
DX: S92.344A Nondisplaced fracture of fourth metatarsal bone, right foot, initial encounter for closed fracture (principal); S92.354A Nondisplaced fracture of fifth metatarsal bone, right foot, initial encounter for closed fracture; W01.0XXA Fall on same level from slipping, tripping and stumbling without subsequent striking against object, initial encounter
CPT/HCPCS: 73564; 73630; 99284; C9399

== ENCOUNTER → 2018-05-06 | Outpatient (CLI) | payer OTHER, MEDICARE ==
[2016-02-05 11:06] VITALS: BMI 26.6
[~2018-05-06] MED LIST changes: +TRAM-420 PO
--- NOTE | 2018-05-07 12:25 | RADIOLOGY IMAGING REPORT ---
FACILITY: [facility] PATIENT NAME: UBALDO PICKARD : [id number] MR: [id number] V: [id number] EXAM DATE: ORDERING PHYSICIAN: JACKLYN BROWN TECHNOLOGIST: Kay Junior PROCEDURE:BILATERAL DIGITAL SCREENING MAMMOGRAM WITH CAD ASSISTED INTERPRETATION & 3D TOMOSYNTHESIS COMPARISON:Prior mammograms 04/19/2017, 08/12/2015, 07/30/2014. INDICATIONS:screening FINDINGS: The breast density is almost entirely fatty replaced which is composition 1. There is no dominant mass, suspicious cluster of calcifications or persistent areas of architectural distortion. TECHNIQUE: BILATERAL CC & MLO 3D TOMOGRAPHIC IMAGES WERE OBTAINED. CAD WAS USED DIAGNOSTIC CATEGORY 1--NEGATIVE. RECOMMENDATIONS: ROUTINE MAMMOGRAM AND CLINICAL EVALUATION IN 1 YR. IMPRESSION: BIRADS 1: Negative. Dictated by: Rafi Coley M.D. on 05/07/2018 at 9:17 Transcribed by: GURPREET on 05/07/2018 at 9:53 Approved by: Rafi Coley M.D. on 05/07/2018 at 12:23 [facility]
== END ==
LOC: MAMO 01:14
PROVIDERS: ATTEND Family Medicine
DX: Z12.31 Encounter for screening mammogram for malignant neoplasm of breast (principal)
CPT/HCPCS: 77063; 77067

== ENCOUNTER → 2018-05-29 | Outpatient (CLI) | payer OTHER, MEDICARE ==
[2016-02-05 11:06] VITALS: BMI 26.6
[~2018-05-29] MED LIST changes: +CHOL10005 PO; +DOXY-228 PO; +LEVO750T44 PO; +TIO18R INH
--- NOTE | 2018-05-29 16:50 | RADIOLOGY IMAGING REPORT ---
FACILITY: [facility] [place] PATIENT NAME: Kesha Cramer : 1955 MR: [id number] V: [id number] EXAM DATE: ORDERING PHYSICIAN: TOR CANDELARIO TECHNOLOGIST: Location: [facility] Patient: Kesha Cramer : 1955 Visit/Account:[id number] Date of Sevice: 05/29/2018 CHEST PA LAT HISTORY: Cough. COMPARISON: 11/27/2016. FINDINGS: Lines/tubes: Spinal cord stimulator. Lungs/pleura: Stable hyperinflation with mildly prominent interstitial markings. No consolidation, pleural effusion, or pneumothorax. Heart: Negative. Mediastinum: Negative. Bony structures/body wall: Negative. IMPRESSION: No acute cardiopulmonary process. Report Dictated By: Arnoldo Jauregui MD at 05/29/2018 4:44 PM Report E-Signed By: Arnoldo Jauregui MD at 05/29/2018 4:46 PM WSN:[id number]
== END ==
LOC: RAD 15:48
PROVIDERS: ATTEND Otolaryngology
DX: R05 Cough (principal)
CPT/HCPCS: 71046

== ENCOUNTER → 2018-06-05 | Outpatient (CLI) | payer OTHER, MEDICARE ==
[2016-02-05 11:06] VITALS: BMI 26.6
--- NOTE | 2018-06-05 16:31 | RADIOLOGY IMAGING REPORT ---
FACILITY: [facility] [place] PATIENT NAME: Kesha Cramer : 1955 MR: [id number] V: [id number] EXAM DATE: ORDERING PHYSICIAN: TOR CANDELARIO TECHNOLOGIST: Location: [facility] Patient: Kesha Cramer : 1955 Visit/Account:[id number] Date of Sevice: 06/05/2018 Study: CT scan of the paranasal sinuses Indication: Chronic sinusitis Comparison study:None Technique: Multiple axial images were obtained through the paranasal sinuses. Coronal and sagittal 2- dimensional reconstructions were made from the original data set. One of the following dose optimization techniques was utilized in the performance of this exam: Autom ated exposure control; adjustment of the mA and/or kV according to the patient's size; or use of an i terative reconstruction technique. Specific details can be referenced in the facility's radiology C T exam operational policy. Findings: Maxillary sinuses:Unremarkable Ethmoid air cells:Unremarkable Sphenoid sinus:Unremarkable Frontal sinus:Unremarkable Ostiomeatal units:Patent bilaterally Nasal septum:Midline IMPRESSION:CT scan of the paranasal sinuses demonstrating no evidence of radiographically significant abnormality. Report Dictated By: Natanael Whitten at 06/05/2018 4:24 PM Report E-Signed By: Natanael Whitten at 06/05/2018 4:27 PM WSN:[id number]
== END ==
LOC: CT 15:25
PROVIDERS: ATTEND Otolaryngology
DX: J32.9 Chronic sinusitis, unspecified (principal)
CPT/HCPCS: 70486

== ENCOUNTER → 2018-08-21 | Outpatient (CLI) | payer OTHER, MEDICARE ==
[2016-02-05 11:06] VITALS: BMI 26.6
== END ==
LOC: RESP 08:27
DX: J45.41 Moderate persistent asthma with (acute) exacerbation (principal)
CPT/HCPCS: 94060; 94726; 94729